=== PATIENT | male | born 1975 | race Caucasian/White ===

== ENCOUNTER → 2017-01-12 | Outpatient (CLI) | payer MEDICAID | LOC: RAD 09:04 | PROVIDERS: ATTEND Nurse Practitioner Adult Health | DX: R06.00 Dyspnea, unspecified (principal); J44.9 Chronic obstructive pulmonary disease, unspecified | CPT/HCPCS: 71250 ==

== ENCOUNTER → 2017-12-28 | Outpatient (CLI) | payer MEDICARE, MEDICAID ==
[2017-12-28 08:28] LABS: ANION GAP 12 (5-19); BLOOD UREA NITROGEN 15 mg/dL (7-20); CALCIUM 9.9 mg/dL (8.4-10.2); CARBON DIOXIDE 28 mmol/L (22-30); CHLORIDE 102 mmol/L (98-107); GLUCOSE 108 mg/dL (75-110); POTASSIUM 4.7 mmol/L (3.6-5.0); SODIUM 141.8 mmol/L (137-145)
--- NOTE | 2017-12-28 09:24 | RADIOLOGY REPORT (SQ) ---
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 Images reviewed with lung, soft tissue and bone windows. Reconstructed coronal and sagittal MPR images reviewed. All images st ored on PACS. All CT scanners at this facility use dose modulation, iterative reconstruction, and/or weight based d osing when appropriate to reduce radiation dose to as low as reasonably achievable (ALARA). [facility]: Dose Right [facility]: CareDose [facility]: Dose Right [facility]: Teradose 4D [facility]: Smart [employer] RADIATION DOSE: CT Rad equipment meets quality standard of care and radiation dose reduction techniq ues were employed. CTDIvol: 9.0 mGy. DLP: 340 mGy-cm. mGy. LIMITATIONS: No technical limitations. FINDINGS: LUNGS AND PLEURA: Centrilobular and paraseptal emphysema. Scattered subcentimeter nodules and reticulonodular pattern in the right lower lobe. Improved aeration in the middle lobe. No prog ression. HILAR AND MEDIASTINAL STRUCTURES: Mediastinal nodes measuring up to about 1 cm in short axis. No pro gression. HEART AND VASCULAR STRUCTURES: No aneurysm. No pericardial effusion. UPPER ABDOMEN: No significant findings. Limited exam. THYROID AND OTHER SOFT TISSUES: No masses. No adenopathy. BONES: No significant finding. HARDWARE: None in the chest. OTHER: No other significant findings. IMPRESSION: Chest findings consistent with clinical history of sarcoid. No progression. TECHNICAL DOCUMENTATION: JOB ID: [id number] Quality ID # [id number]: Final reports with documentation of one or more dose reduction techniques (e.g., Au tomated exposure control, adjustment of the mA and/or kV according to patient size, use of iterative reconstruction technique) 2010 [employer]- All Rights Reserved Reading location - IP/workstation name: [email or web address]
== END ==
LOC: RAD 07:27
PROVIDERS: ATTEND Internal Medicine Pulmonary Disease
DX: D86.0 Sarcoidosis of lung (principal)
CPT/HCPCS: 36415; 71250; 80048; 82164; 82340; 85652

== ENCOUNTER 2018-07-13 18:19 | Emergency (ER) | payer MEDICARE, MEDICAID ==
[2018-07-13 18:51] VITALS: BP 126/81
--- NOTE | 2018-07-13 19:14 | ER Document Report ---
ED Respiratory Problem - General Chief Complaint: Breathing Difficulty Stated Complaint: COUGH,CONGESTION,BODY PAIN Time Seen by Provider: 07/13/18 19:11 Notes: Chief complaint: Need oxygen History of complain:( obtained from----patient)He is here because he needed oxygen, bowel ran out of his house and he is unable to use the oxygen. And also states that he has run out of all his medications and no money to buy. But no exacerbation of COPD. No fever chills or other constitutional symptoms Onset: As above Duration: As above Severity: As above mild Quality: As above as above Context: Exacerbating factor and relieving factors: REVIEW OF SYSTEMS: CONSTITUTIONAL : Denies fever, chills, or sweats. Denies recent illness. EENT: Denies eye, ear, throat, or mouth pain or symptoms. Denies nasal or sinus congestion or discharge. Denies throat, tongue, or mouth swelling or difficulty swallowing. CARDIOVASCULAR: Denies chest pain. Denies palpitations or racing or irregular heart beat. Denies ankle edema. RESPIRATORY: Denies cough, cold, or chest congestion. Denies shortness of breath, difficulty breathing, or wheezing. GASTROINTESTINAL: Denies distention. Denies nausea, vomiting, or diarrhea. Denies blood in vomitus, stools, or per rectum. Denies black, tarry stools. Denies constipation. GENITOURINARY: Denies difficulty urinating, painful urination, burning, frequency, blood in urine, or discharge. FEMALE GENITOURINARY: Denies vaginal bleeding, heavy or abnormal periods, irregular periods. Denies vaginal discharge or odor. MUSCULOSKELETAL: Denies back or neck pain or stiffness. Denies joint pain or swelling. SKIN: Denies rash, lesions or sores. HEMATOLOGIC : Denies easy bruising or bleeding. LYMPHATIC: Denies swollen, enlarged glands. NEUROLOGICAL: Denies confusion or altered mental status. Denies passing out or loss of consciousness. Denies dizziness or lightheadedness. Denies headache. Denies weakness or paralysis or loss of use of either side. Denies problems with gait or speech. Denies sensory loss, numbness, or tingling. Denies seizures. PSYCHIATRIC: Denies anxiety or stress. Denies depression, suicidal ideation, or homicidal ideation. ALL OTHER SYSTEMS REVIEWED AND NEGATIVE. PHYSICAL EXAMINATION: GENERAL: Well-appearing, well-nourished and in no acute distress. Not seems to be in any acute distress HEAD: Atraumatic, normocephalic. EYES: Pupils equal round and reactive to light, extraocular movements intact, conjunctiva are normal. ENT: Nares patent, oropharynx clear without exudates. Moist mucous membranes. NECK: Normal range of motion, supple without lymphadenopathy LUNGS: Breath sounds clear to auscultation bilaterally and equal. No wheezes rales or rhonchi. HEART: Regular rate and rhythm without murmurs ABDOMEN: Soft, nontender, nondistended abdomen. No guarding, no rebound. No masses appreciated. Examination of genitals-deferred Musculoskeletal: Normal range of motion, no pitting or edema. No cyanosis. NEUROLOGICAL: Cranial nerves grossly intact. Normal speech, normal gait. Normal sensory, motor exams PSYCH: Normal mood, normal affect. SKIN: Warm, Dry, normal turgor, no rashes or lesions noted. Dictation was performed using [employer] voice recognition software TRAVEL OUTSIDE OF THE [place] IN LAST 30 DAYS: No - HPI Notes: He is here because he needed oxygen, bowel ran out of his house and he is unable to use the oxygen. And also states that he has run out of all his medications and no money to buy. - Related Data Allergies/Adverse Reactions: morphine [Morphine] Adverse Reaction (Verified 07/13/18 18:21) Past Medical History - Social History Smoking Status: Former Smoker Chew tobacco use (# tins/day): Yes Frequency of alcohol use: None Drug Abuse: None Lives with: Family Family History: Reviewed & Not Pertinent Patient has suicidal ideation: No Patient has homicidal ideation: No Pulmonary Medical History: Reports: Hx Bronchitis, Hx COPD, Hx Pneumonia Renal/ Medical History: Denies: Hx Peritoneal Dialysis Musculoskeletal Medical History: Reports Hx Arthritis Past Surgical History: Reports: Hx Abdominal Surgery - Abdominal resection, Hx Bowel Surgery - Immunizations Hx Diphtheria, Pertussis, Tetanus Vaccination: Yes Review of Systems - Review of Systems Notes: He is here because he needed oxygen, bowel ran out of his house and he is unable to use the oxygen. And also states that he has run out of all his medications and no money to buy. Physical Exam - Vital signs Vitals: Temp Pulse Resp BP Pulse Ox 97.4 F 92 18 126/81 H 97 07/13/18 18:49 07/13/18 18:49 07/13/18 18:49 07/13/18 18:49 07/13/18 18:49 - Notes Notes: He is here because he needed oxygen, bowel ran out of his house and he is unable to use the oxygen. And also states that he has run out of all his medications and no money to buy. Course - Vital Signs Vital signs: Temp Pulse Resp BP Pulse Ox 97.4 F 92 18 126/81 H 97 07/13/18 18:49 07/13/18 18:49 07/13/18 18:49 07/13/18 18:49 07/13/18 18:49 Discharge - Discharge Clinical Impression: Hypoxia COPD (chronic obstructive pulmonary disease) Qualifiers: COPD type: chronic bronchitis Chronic bronchitis type: simple Qualified Code(s) : J41.0 - Simple chronic bronchitis Condition: Fair Instructions: Chronic Obstructive Lung Disease ([facility]) Referrals: LINDY PRO MD [Primary Care Provider] - Follow up as needed
== END 2018-07-13 19:15 | disposition home or self-care (01) ==
LOC: ER 18:19
DX: Z99.12 Encounter for respirator [ventilator] dependence during power failure (principal); J44.9 Chronic obstructive pulmonary disease, unspecified; R09.02 Hypoxemia; Z91.14 Patient's other noncompliance with medication regimen; Z87.891 Personal history of nicotine dependence
CPT/HCPCS: 99283

== ENCOUNTER 2018-12-28 21:23 | Emergency (ER) | payer MEDICARE, MEDICAID ==
[2018-12-28 22:32] LABS: ABSOLUTE BASOPHILS # (AUTO) 0.1 10^3/uL (0.0-0.2); ABSOLUTE EOSINOPHILS # (AUTO) 0.4 10^3/uL (0.0-0.6); ABSOLUTE LYMPHOCYTES (AUTO) 2.9 10^3/uL (0.5-4.7); ABSOLUTE MONOCYTES (AUTO) 0.4 10^3/uL (0.1-1.4); ABSOLUTE NEUT (AUTO) 5.4 10^3/uL (1.7-8.2); BASOPHILS % (AUTO) 1.1 % (0-2); EOSINOPHILS % (AUTO) 4.1 % (0-6); HEMATOCRIT 38.9 % (37.9-51.0); HEMOGLOBIN 13.4 g/dL (13.5-17.0); LYMPHOCYTES % (AUTO) 31.3 % (13-45); MEAN CORPUSCULAR HEMOGLOBIN 31.3 pg (27.0-33.4); MEAN CORPUSCULAR HGB CONC 34.3 g/dL (32.0-36.0); MEAN CORPUSCULAR VOLUME 91 fl (80-97); MONOCYTES % (AUTO) 4.6 % (3-13); PLATELET COUNT 293 10^3/uL (150-450); RED BLOOD COUNT 4.26 10^6/uL (4.35-5.55); RED CELL DISTRIBUTION WIDTH 12.6 % (11.5-14.0); SEGMENTED NEUTROPHILS % (AUTO) 58.9 % (42-78); TOTAL CELLS COUNTED % (AUTO) 100 %; WHITE BLOOD COUNT 9.2 10^3/uL (4.0-10.5)
[2018-12-28 23:04] LABS: ALANINE AMINOTRANSFERASE 34 U/L (21-72); ALKALINE PHOSPHATASE 123 U/L (38-126); ANION GAP 14 (5-19); ASPARTATE AMINO TRANSFERASE 26 U/L (17-59); BILIRUBIN,DIRECT 0.2 mg/dL (0.0-0.4); BILIRUBIN,TOTAL 0.4 mg/dL (0.2-1.3); BLOOD UREA NITROGEN 9 mg/dL (7-20); CARBON DIOXIDE 27 mmol/L (22-30); CHLORIDE 99 mmol/L (98-107); GLUCOSE 123 mg/dL (75-110); POTASSIUM 4.1 mmol/L (3.6-5.0); SODIUM 140.4 mmol/L (137-145); TOTAL PROTEIN 8.1 g/dL (6.3-8.2)
[2018-12-28 23:10] LABS: ACETAMINOPHEN < 10 ug/mL (10-30); ALCOHOL < 10 mg/dL (NONE DETECTED); SALICYLATE < 1.0 mg/dL (2.0-20.0)
--- NOTE | 2018-12-28 23:46 | ER Document Report ---
Addendum entered and electronically signed by CLARENCE KIRK DO 12/29/18 10:45: Discharge - Discharge Clinical Impression: Auditory hallucinations Condition: Stable Disposition: HOME, SELF-CARE Additional Instructions: You have been evaluated both medical and behavioral health teams have been deemed appropriate for discharge. You are highly encouraged to continue with your outpatient mental health services. You are also highly encouraged to engage in healthy sleeping patterns. When going to long without sleep it can cause altered mental status. Altered Mental Status An altered mental status is a change in the normal functioning of the brain. This alteration of function can range from minor decreased brain function with some forgetfulness and confusion to complete loss of consciousness and coma. There are many possible causes of an altered mental status and include brain injuries such as trauma or strokes, problems with oxygen supply to the brain, fever and infections of the brain and/or elsewhere in the body, metabolic abnormalities such as low or high blood sugar, overdoses or excessive medication ingestion, and mental and psychiatric illnesses. Sometimes the altered mental status resolves and a definite cause is not determined. If a cause for your altered mental status was found, it has likely been corrected. Your evaluation has not shown any condition that requires that you be admitted to the hospital. It is believed that you are safe to leave and return to your home. If you have a return of your symptoms, you should return for re-evaluation. Referrals: LINDY PRO MD [ACTIVE STAFF] - Follow up as needed Addendum entered and electronically signed by MARLEY PARKS LCSWA 12/29/18 10:33: Discharge - Discharge Clinical Impression: Auditory hallucinations Condition: Stable Disposition: HOME, SELF-CARE Additional Instructions: You have been evaluated both medical and behavioral health teams have been deemed appropriate for discharge. You are highly encouraged to continue with your outpatient mental health services. You are also highly encouraged to engage in healthy sleeping patterns. When going to long without sleep it can cause altered mental status. Altered Mental Status An altered mental status is a change in the normal functioning of the brain. This alteration of function can range from minor decreased brain function with some forgetfulness and confusion to complete loss of consciousness and coma. There are many possible causes of an altered mental status and include brain injuries such as trauma or strokes, problems with oxygen supply to the brain, f ever and infections of the brain and/or elsewhere in the body, metabolic abnormalities such as low or high blood sugar, overdoses or excessive medication ingestion, and mental and psychiatric illnesses. Sometimes the altered mental status resolves and a definite cause is not determined. If a cause for your altered mental status was found, it has likely been corrected. Your evaluation has not shown any condition that requires that you be admitted to the hospital. It is believed that you are safe to leave and return to your home. If you have a return of your symptoms, you should return for re-evaluation. Referrals: LINDY PRO MD [ACTIVE STAFF] - Follow up as needed Original Note: ED Psych Disorder / Suicide - General Chief Complaint: Psych Problem Stated Complaint: AUDITORY HALLUCINATIONS Time Seen by Provider: 12/28/18 21:46 Primary Care Provider: LINDY PRO MD [ACTIVE STAFF] - Follow up as needed TRAVEL OUTSIDE OF THE [place] IN LAST 30 DAYS: No - HPI Notes: Patient is a 43-year-old male that presents to the emergency department for chief complaint of auditory hallucinations. Patient reportedly lives at home with his father. He states that he is able to hear "everything" in the house. He states he can be in one room and here his father and talk to his father who is in another room. He states this is new for him. He denies visual hallucinations. He denies any known change to his medications. He denies homicidal and suicidal ideation. Past Medical History: COPD Past Surgical History: Reviewed in chart Social History: Daily tobacco. Denies drugs and alcohol Family History: Reviewed and noncontributory for presenting illness Allergies: Reviewed, see documented allergy list. REVIEW OF SYSTEMS: CONSTITUTIONAL : No fever No chills No diaphoresis No recent illness EENT: No vision changes No congestion No sore throat CARDIOVASCULAR: No chest pain No palpitations RESPIRATORY: No shortness of breath No cough No difficulty breathing GASTROINTESTINAL: No abdominal pain No nausea No vomiting No diarrhea GENITOURINARY: No dysuria No hematuria No difficulty urinating MUSCULOSKELETAL: No back pain No leg pain No arm pain SKIN: No rashes No lesions LYMPHATIC: No swollen, enlarged glands. NEUROLOGICAL: No lightheadedness No headache No weakness No paresthesias PSYCHIATRIC: anxiety Auditory hallucinations No depression PHYSICAL EXAMINATION: Vital signs reviewed, nursing noted reviewed. GENERAL: Well-appearing, well-nourished and in no acute distress. HEAD: Atraumatic, normocephalic. EYES: Eyes appear normal, extraocular movements intact, sclera anicteric, conjunctiva are normal. ENT: nares patent, oropharynx clear without exudates. Moist mucous membranes. NECK: Normal range of motion, supple without lymphadenopathy LUNGS: Breath sounds clear to auscultation bilaterally and equal. No wheezes rales or rhonchi. HEART: Regular rate and rhythm without murmurs ABDOMEN: Soft, nontender, normoactive bowel sounds. No rebound, guarding, or rigidity. No masses appreciated. EXTREMITIES: Nontender, good range of motion, no pitting or edema. NEUROLOGICAL: No focal neurological deficits. Moves all extremities spontaneo usly Motor and sensory grossly intact on exam. PSYCH: Anxious, internally stimulated SKIN: Warm, Dry, normal turgor, no rashes or lesions noted on exposed skin - Related Data Allergies/Adverse Reactions: morphine [Morphine] Adverse Reaction (Verified 07/13/18 18:21) Past Medical History - Social History Smoking Status: Current Every Day Smoker Family History: Reviewed & Not Pertinent Pulmonary Medical History: Reports: Hx Bronchitis, Hx COPD, Hx Pneumonia Renal/ Medical History: Denies: Hx Peritoneal Dialysis Musculoskeletal Medical History: Reports Hx Arthritis Past Surgical History: Reports: Hx Abdominal Surgery - Abdominal resection, Hx Bowel Surgery - Immunizations Hx Diphtheria, Pertussis, Tetanus Vaccination: Yes Physical Exam - Vital signs Vitals: Temp Pulse Resp BP Pulse Ox 98.1 F 111 H 20 107/56 L 97 12/28/18 21:33 12/28/18 21:33 12/28/18 21:33 12/28/18 21:33 12/28/18 21:33 Course - Re-evaluation Re-evalutation: 12/29/18 00:04 Vitals reviewed. Nursing notes reviewed. Patient's lab work is unremarkable. He is medically cleared for further psych evaluation for his auditory hallucinations. Patient is not homicidal or suicidal. He is resting comfortably in the room with no immediate complaints. - Vital Signs Vital signs: Temp Pulse Resp BP Pulse Ox 98.1 F 111 H 20 107/56 L 97 12/28/18 21:33 12/28/18 21:33 12/28/18 21:33 12/28/18 21:33 12/28/18 21:33 - Laboratory Result Diagrams: 12/28/18 22:05 03/05/19 22:05 Laboratory results interpreted by me: 12/28/18 12/28/18 22:05 22:05 RBC 4.26 L Hgb 13.4 L Glucose 123 H Salicylates < 1.0 L Acetaminophen < 10 L Discharge - Discharge Clinical Impression: Auditory hallucinations Condition: Stable Referrals: LINDY PRO MD [ACTIVE STAFF] - Follow up as needed
[2018-12-28 23:50] LABS: APPEARANCE,URINE CLEAR; BILIRUBIN,URINE NEGATIVE (NEGATIVE); COLOR,URINE YELLOW; GLUCOSE, URINE NEGATIVE (NEGATIVE); KETONES,URINE NEGATIVE (NEGATIVE); LEUKOCYTE ESTERASE,URINE NEGATIVE (NEGATIVE); NITRITE,URINE NEGATIVE (NEGATIVE); PROTEIN,URINE NEGATIVE (NEGATIVE); URINE SPECIFIC GRAVITY 1.015; UROBILINOGEN,URINE NEGATIVE mg/dL (<2.0)
[2018-12-29 00:05] LABS: URINE AMPHETAMINES SCREEN NEGATIVE; URINE BARBITURATES SCREEN NEGATIVE; URINE BENZODIAZEPINES SCREEN NEGATIVE; URINE COCAINE SCREEN NEGATIVE; URINE MARIJUANA (THC) SCREEN NEGATIVE; URINE METHADONE SCREEN UNCONFIRMED POSITIVE; URINE PHENCYCLIDINE SCREEN NEGATIVE
[2018-12-29] MEDS ORDERED: ZIPRASIDONE HCL 20 MG CAPSULE PO ONE ×2 (00:55→01:26)
[2018-12-29] MEDS ORDERED: NICOTINE 14 MG/24 HR PATCH.TD24 TD ONE (01:09)
--- NOTE | 2018-12-29 10:29 | ER Document Report ---
Doctor's Note Notes: 12/29/18 10:27 Patient seen and examined. He states he is feeling much better today. He believes his entire problem was because he had not slept in nearly 10 days. He had been on medication to help him sleep, he had stopped taking that. He denies any hallucinations this morning. Denies any suicidal or homicidal ideation. States he does have follow-up, feels safe with discharge. Patient is awake and alert, pleasant and cooperative. Heart is regular rate and rhythm, lungs occasional rhonchi. Abdomen soft and nontender. Skin is warm and dry. Plan is discharge. He is to follow-up with [facility]. He is reminded of the importance of sleep and normal mental function and voiced understanding to this. He is to return as needed.
[2018-12-29 10:50] VITALS: BP 136/78
--- NOTE | 2018-12-29 16:23 | PSYCHOLOGICAL NOTE ---
Psych Note - Psych Note Date seen by psych provider: 12/29/18 Time seen by psych provider: 10:15 Psych Note: Reason for Consult: AMS; Hallucinations Patient reports he came to [facility] ED because he was seeing and hearing things that were not there. He reports that he not slept in 10 days and feels this was a significant cause. He continued to report that he takes methadone and feels that this may be the reason he was unable to sleep. He continued to report that he is no longer having any difficulties with seeing or hearing things that confuse or scare him. He is requesting to be discharged so he can get his methadone. At this time the patient is completely orientated is not demonstrating any behaviors to indicate he is responding to internal stimuli. She denies having any history of mental health diagnoses and denies engaging in self-harm behaviors. Patient is alert and orientated to person, place, time and circumstance. Mood is euthymic with congruent affect. Patient denies suicidal and homicidal ideation. Delusions are absent behaviors congruent with an intact reality based presentation i.e. organized and linear thought process. Eye contact was well- maintained. Conversational speech is within normal rate, tone and prosody. Intellectual abilities appear to be within the average range. Attention and concentration are fair. Insight, judgment, impulse control are fair. No medication recommendations at this time Deferred Impression\plan: Patient is cleared from acute psychiatric services. Patient reports that he had not slept in 10 days and feels that this may have caused some of his difficulties. He reports that now he is gone from sleep he is feeling much better. Patient is able to conduct an organized linear conversation is not demonstrating any behaviors of responding to internal stimuli evidenced by eye contact being well maintained, normal conversational speech, organized and linear thought process. Patient reports he is on methadone and when he found out he would not be able to receive any methadone this morning he asked to be discharged so he can get some. He reports that he receives therapy when he goes to the [facility] for his methadone. Clinician recommended substance abuse treatment assessment to determine best treatment options. Patient reports he will return to the [facility] and did not declines any other assistance. At this time the patient is orientated to person place time and circumstance and is not demonstrated any behaviors of responding to internal stimuli. He is asking to be discharged; he does not meet IVC criteria per [place] GS 122C. Dr. Hannah was consulted and the care management of this patient; attending physicians in agreement with recommendations and disposition.
--- NOTE | 2018-12-29 19:17 | EKG REPORT ---
SEVERITY:- BORDERLINE ECG - SINUS RHYTHM BORDERLINE T ABNORMALITIES, ANTERIOR LEADS BORDERLINE PROLONGED QT INTERVAL : Confirmed by: Patricia Angeles MD 29-Dec-2018 19:16:14
== END 2018-12-29 11:08 | disposition home or self-care (01) ==
LOC: ER 21:23
DX: R44.0 Auditory hallucinations (principal); R41.82 Altered mental status, unspecified; F17.210 Nicotine dependence, cigarettes, uncomplicated; J44.9 Chronic obstructive pulmonary disease, unspecified; Z88.6 Allergy status to analgesic agent
CPT/HCPCS: 93005; 99285; 36415; 80307 ×4; 85025; 80053; 81001; 93010; A9270

== ENCOUNTER 2019-01-01 13:28 | Emergency (ER) | payer MEDICARE, MEDICAID ==
--- NOTE | 2019-01-01 14:04 | ER Document Report ---
ED Medical Screen (RME) - General Chief Complaint: Psych Problem Stated Complaint: PSYCH CONSULT Time Seen by Provider: 01/01/19 14:02 Primary Care Provider: DEDRA WINTERS MD [Primary Care Provider] - Follow up as needed Mode of Arrival: Ambulatory Information source: Patient, [facility] Records Notes: 43-year-old male presents in security custody after being found walking around the hospital naked. Patient is alert and oriented x3 but confused and states that he is being poisoned. I have greeted and performed a rapid initial assessment of this patient. A comprehensive ED assessment and evaluation of the patient, analysis of test results and completion of medical decision making process we will be contacted by additional ED providers. PHYSICAL EXAMINATION: Vital signs reviewed GENERAL: Well-appearing, well-nourished and in no acute distress. LUNGS: No respiratory distress Musculoskeletal: Normal range of motion NEUROLOGICAL: Normal speech, normal gait. PSYCH: Confused, paranoid SKIN: Warm, Dry, normal turgor, no rashes or lesions noted. TRAVEL OUTSIDE OF THE [place] IN LAST 30 DAYS: No - HPI Onset: Just prior to arrival Onset/Duration: Sudden Quality of pain: No pain Associated Symptoms: None Exacerbated by: Denies Relieved by: Denies Similar symptoms previously: No Recently seen / treated by doctor: No - Related Data Smoking: Cigarettes Frequency of alcohol use: None Drug Abuse: None Allergies/Adverse Reactions: morphine [Morphine] Adverse Reaction (Verified 12/29/18 00:19) Past Medical History Pulmonary Medical History: Reports: Hx Bronchitis, Hx COPD, Hx Pneumonia Renal/ Medical History: Denies: Hx Peritoneal Dialysis Musculoskeltal Medical History: Reports Hx Arthritis Past Surgical History: Reports: Hx Abdominal Surgery - Abdominal resection, Hx Bowel Surgery - Immunizations Hx Diphtheria, Pertussis, Tetanus Vaccination: Yes Physical Exam - Vital signs Vitals: Temp Pulse Resp BP Pulse Ox 98.3 F 128 H 16 121/91 H 96 01/01/19 13:47 01/01/19 13:47 01/01/19 13:47 01/01/19 13:47 01/01/19 13:47 Course - Vital Signs Vital signs: Temp Pulse Resp BP Pulse Ox 98.3 F 128 H 16 121/91 H 96 01/01/19 13:47 01/01/19 13:47 01/01/19 13:47 01/01/19 13:47 01/01/19 13:47 Doctor's Discharge - Discharge Referrals: DEDRA WINTERS MD [Primary Care Provider] - Follow up as needed
[2019-01-01 15:15] LABS: ABSOLUTE BASOPHILS # (AUTO) 0.1 10^3/uL (0.0-0.2); ABSOLUTE EOSINOPHILS # (AUTO) 0.1 10^3/uL (0.0-0.6); ABSOLUTE LYMPHOCYTES (AUTO) 2.8 10^3/uL (0.5-4.7); ABSOLUTE MONOCYTES (AUTO) 0.7 10^3/uL (0.1-1.4); ABSOLUTE NEUT (AUTO) 7.6 10^3/uL (1.7-8.2); BASOPHILS % (AUTO) 0.9 % (0-2); EOSINOPHILS % (AUTO) 0.8 % (0-6); HEMATOCRIT 39.7 % (37.9-51.0); HEMOGLOBIN 13.2 g/dL (13.5-17.0); LYMPHOCYTES % (AUTO) 24.4 % (13-45); MEAN CORPUSCULAR HEMOGLOBIN 30.2 pg (27.0-33.4); MEAN CORPUSCULAR HGB CONC 33.2 g/dL (32.0-36.0); MEAN CORPUSCULAR VOLUME 91 fl (80-97); MONOCYTES % (AUTO) 6.5 % (3-13); PLATELET COUNT 331 10^3/uL (150-450); RED BLOOD COUNT 4.37 10^6/uL (4.35-5.55); RED CELL DISTRIBUTION WIDTH 12.5 % (11.5-14.0); SEGMENTED NEUTROPHILS % (AUTO) 67.4 % (42-78); TOTAL CELLS COUNTED % (AUTO) 100 %; WHITE BLOOD COUNT 11.3 10^3/uL (4.0-10.5)
[2019-01-01 15:19] LABS: ALANINE AMINOTRANSFERASE 28 U/L (21-72); ALBUMIN 5.2 g/dL (3.5-5.0); ALKALINE PHOSPHATASE 130 U/L (38-126); ANION GAP 14 (5-19); ASPARTATE AMINO TRANSFERASE 45 U/L (17-59); BILIRUBIN,DIRECT 0.2 mg/dL (0.0-0.4); BILIRUBIN,TOTAL 0.5 mg/dL (0.2-1.3); BLOOD UREA NITROGEN 12 mg/dL (7-20); CALCIUM 10.9 mg/dL (8.4-10.2); CARBON DIOXIDE 29 mmol/L (22-30); CHLORIDE 97 mmol/L (98-107); GLUCOSE 102 mg/dL (75-110); SODIUM 140.1 mmol/L (137-145); TOTAL PROTEIN 8.5 g/dL (6.3-8.2)
[2019-01-01 15:25] LABS: ACETAMINOPHEN < 10 ug/mL (10-30); ALCOHOL < 10 mg/dL (NONE DETECTED); SALICYLATE < 1.0 mg/dL (2.0-20.0)
[2019-01-01] MEDS ORDERED: NORMAL SALINE 1000 ML 1,000 ML IV PRN (15:39)
--- NOTE | 2019-01-01 15:40 | ER Document Report ---
ED General - General Chief Complaint: Psych Problem Stated Complaint: PSYCH CONSULT Time Seen by Provider: 01/01/19 14:02 Primary Care Provider: DEDRA WINTERS MD [Primary Care Provider] - Follow up as needed Mode of Arrival: Ambulatory Notes: 43-year-old male to the emergency department chief complaint altered mental status. Apparently was walking around outside with minimal close on. Patient was brought in here for evaluation. He is not sleeping well again. Was seen here a few days ago for the same. Was apparently evaluated by mental health. Patient states that he thinks he is dehydrated. Very sleepy. States that he supposed to be on oxygen but has not been able to get a refill on his oxygen. Apparently patient is on methadone as well. Patient denies doing any toxic subs tances. Denies alcohol abuse. Denies suicidal ideation or homicidal ideation or other issues at this time. States that he ran out of his oxygen and he thinks may be that is why he was altered. TRAVEL OUTSIDE OF THE [place] IN LAST 30 DAYS: No - HPI Onset: Just prior to arrival Quality of pain: No pain - Related Data Allergies/Adverse Reactions: morphine [Morphine] Adverse Reaction (Verified 12/29/18 00:19) Past Medical History - General Information source: Patient, [facility] Records - Social History Smoking Status: Current Every Day Smoker Chew tobacco use (# tins/day): No Frequency of alcohol use: None Drug Abuse: None Family History: Reviewed & Not Pertinent Patient has suicidal ideation: No Patient has homicidal ideation: No Pulmonary Medical History: Reports: Hx Bronchitis, Hx COPD, Hx Pneumonia Renal/ Medical History: Denies: Hx Peritoneal Dialysis Musculoskeletal Medical History: Reports Hx Arthritis Past Surgical History: Reports: Hx Abdominal Surgery - Abdominal resection, Hx Bowel Surgery - Immunizations Hx Diphtheria, Pertussis, Tetanus Vaccination: Yes Review of Systems - Review of Systems Notes: Constitutional: denies: Chills, Diaphoresis, Fever, Malaise, Weakness EENT: denies: Eye discharge, Blurred vision, Tearing, Double vision, Nose congestion, Nose discharge, Throat swelling, Mouth pain Cardiovascular: denies: Palpitations, Heart racing, Orthopnea, Dyspnea, Chest p ain Respiratory: denies: Cough, Hurts to breathe, Wheezing,. Does complain of chronic shortness of breath Gastrointestinal: denies: Abdominal pain, Diarrhea, Nausea, Vomiting, Black stools, bright red blood in stool Genitourinary: denies: Burning, Dysuria, Discharge, Frequency, Flank pain, Hemat uria Musculoskeletal: denies: Joint pain, Joint swelling, Muscle pain, Muscle stiffness, back pain Hematologic/Lymphatic: denies: Anemia, Easy bleeding, Easy bruising, Blood clots Neurological/Psychological: denies: Dementia, Depression, Loss of consciousness. Does complain of confusion Skin: No lesions, no masses, no skin breakdown, no abscesses Physical Exam - Vital signs Vitals: Temp Pulse Resp BP Pulse Ox 98.3 F 128 H 16 121/91 H 96 01/01/19 13:47 01/01/19 13:47 01/01/19 13:47 01/01/19 13:47 01/01/19 13:47 Interpretation: Normal - General General appearance: Appears well, Alert - HEENT Head: Normocephalic, Atraumatic Eyes: Normal Pupils: PERRL - Respiratory Respiratory status: No respiratory distress Chest status: Nontender Breath sounds: Normal Chest palpation: Normal - Cardiovascular Rhythm: Regular Heart sounds: Normal auscultation Murmur: No - Abdominal Inspection: Normal Distension: No distension Bowel sounds: Normal Tenderness: Nontender Organomegaly: No organomegaly - Back Back: Normal, Nontender - Extremities General upper extremity: Normal inspection, Nontender, Normal color, Normal ROM, Normal temperature General lower extremity: Normal inspection, Nontender, Normal color, Normal ROM, Normal temperature, Normal weight bearing. No: Orin's sign - Neurological Neuro grossly intact: Yes Cognition: Normal Orientation: AAOx4 [place] Coma Scale Eye Opening: Spontaneous Lance Coma Scale Verbal: Oriented Lance Coma Scale Motor: Obeys Commands Lance Coma Scale Total: 15 Speech: Normal Motor strength normal: LUE, RUE, LLE, RLE Sensory: Normal Notes: does seem a little sleepy but otherwise unremarkable. - Psychological Associated symptoms: Normal affect, Normal mood - Skin Skin Temperature: Warm Skin Moisture: Dry Skin Color: Normal Course - Re-evaluation Re-evalutation: 01/01/19 20:32 Patient is awake and alert in no acute distress. Unknown etiology of his alleged altered mental status. I had never saw any altered mental status. Possible patient is under the influence of something which is not testable such as Robitussin or dextromethorphan. Does have positive urine screen for methadone but reportedly on methadone. Patient got an ABG performed which is fairly unremarkable. His oxygen saturations have been within normal limits here. Is resting comfortably and in no acute distress. I find no reason to keep patient on an involuntary commitment paperwork as he seems appropriate at this time. I do not know what his current living situation is however I can effectively say I think that we have ruled out major emergencies and he has no major mental health concerns in my opinion at this time. 01/01/19 20:33 Laboratory 01/01/19 01/01/19 01/01/19 14:25 14:25 15:50 WBC 11.3 H RBC 4.37 Hgb 13.2 L Hct 39.7 MCV 91 MCH 30.2 MCHC 33.2 RDW 12.5 Plt Count 331 Seg Neutrophils % 67.4 Lymphocytes % 24.4 Monocytes % 6.5 Eosinophils % 0.8 Basophils % 0.9 Absolute Neutrophils 7.6 Absolute Lymphocytes 2.8 Absolute Monocytes 0.7 Absolute Eosinophils 0.1 Absolute Basophils 0.1 Carbonic Acid HCO3/H2CO3 Ratio ABG pH ABG pCO2 ABG pO2 ABG HCO3 ABG Total CO2 ABG O2 Saturation ABG Base Excess FiO2 Sodium 140.1 Potassium 4.0 Chloride 97 L Carbon Dioxide 29 Anion Gap 14 BUN 12 Creatinine 0.79 Est GFR ( Amer) > 60 Est GFR (Non-Af Amer) > 60 Glucose 102 Calcium 10.9 H Total Bilirubin 0.5 Direct Bilirubin 0.2 Neonat Total Bilirubin Not Reportable Neonat Direct Bilirubin Not Reportable Neonat Indirect Bili Not Reportable AST 45 ALT 28 Alkaline Phosphatase 130 H Total Protein 8.5 H Albumin 5.2 H Urine Color VINI Urine Appearance SLIGHTLY-CLOUDY Urine pH 6.0 Ur Specific Eden 1.023 Urine Protein 100 H Urine Glucose (UA) NEGATIVE Urine Ketones NEGATIVE Urine Blood NEGATIVE Urine Nitrite NEGATIVE Urine Bilirubin NEGATIVE Urine Urobilinogen 2.0 H Ur Leukocyte Esterase TRACE H Urine WBC (Auto) 4 Urine RBC (Auto) 4 U Hyaline Cast (Auto) 1 Urine Bacteria (Auto) 3+ Calcium Oxalate Cr Auto RARE Urine Mucus (Auto) OCC Urine Ascorbic Acid NEGATIVE Salicylates < 1.0 L Urine Opiates Screen Urine Methadone Screen Acetaminophen < 10 L Ur Barbiturates Screen Ur Phencyclidine Scrn Ur Amphetamines Screen U Benzodiazepines Scrn Urine Cocaine Screen U Marijuana (THC) Screen Serum Alcohol < 10 01/01/19 01/01/19 15:50 16:40 WBC RBC Hgb Hct MCV MCH MCHC RDW Plt Count Seg Neutrophils % Lymphocytes % Monocytes % Eosinophils % Basophils % Absolute Neutrophils Absolute Lymphocytes Absolute Monocytes Absolute Eosinophils Absolute Basophils Carbonic Acid 1.35 HCO3/H2CO3 Ratio 20:1 ABG pH 7.41 ABG pCO2 44.7 ABG pO2 72.9 L ABG HCO3 27.9 H ABG Total CO2 29.3 H ABG O2 Saturation 94.8 ABG Base Excess 2.8 FiO2 ROOM AIR Sodium Potassium Chloride Carbon Dioxide Anion Gap BUN Creatinine Est GFR ( Amer) Est GFR (Non-Af Amer) Glucose Calcium Total Bilirubin Direct Bilirubin Neonat Total Bilirubin Neonat Direct Bilirubin Neonat Indirect Bili AST ALT Alkaline Phosphatase Total Protein Albumin Urine Color Urine Appearance Urine pH Ur Specific Eden Urine Protein Urine Glucose (UA) Urine Ketones Urine Blood Urine Nitrite Urine Bilirubin Urine Urobilinogen Ur Leukocyte Esterase Urine WBC (Auto) Urine RBC (Auto) U Hyaline Cast (Auto) Urine Bacteria (Auto) Calcium Oxalate Cr Auto Urine Mucus (Auto) Urine Ascorbic Acid Salicylates Urine Opiates Screen NEGATIVE Urine Methadone Screen UNCONFIRMED POSITIVE Acetaminophen Ur Barbiturates Screen NEGATIVE Ur Phencyclidine Scrn NEGATIVE Ur Amphetamines Screen NEGATIVE U Benzodiazepines Scrn NEGATIVE Urine Cocaine Screen NEGATIVE U Marijuana (THC) Screen NEGATIVE Serum Alcohol - Vital Signs Vital signs: Temp Pulse Resp BP Pulse Ox 98.6 F 105 H 20 114/80 96 01/01/19 19:16 01/01/19 19:54 01/01/19 19:16 01/01/19 19:16 01/01/19 19:54 - Laboratory Result Diagrams: 01/01/19 14:25 01/01/19 14:25 Laboratory results interpreted by me: 01/01/19 01/01/19 01/01/19 14:25 14:25 15:50 WBC 11.3 H Hgb 13.2 L ABG pO2 ABG HCO3 ABG Total CO2 Chloride 97 L Calcium 10.9 H Alkaline Phosphatase 130 H Total Protein 8.5 H Albumin 5.2 H Urine Protein 100 H Urine Urobilinogen 2.0 H Ur Leukocyte Esterase TRACE H Salicylates < 1.0 L Acetaminophen < 10 L 01/01/19 16:40 WBC Hgb ABG pO2 72.9 L ABG HCO3 27.9 H ABG Total CO2 29.3 H Chloride Calcium Alkaline Phosphatase Total Protein Albumin Urine Protein Urine Urobilinogen Ur Leukocyte Esterase Salicylates Acetaminophen - EKG Interpretation by De EKG shows normal: [place], Intervals, QRS Complexes, ST-T Waves Rate: Tachycardia Discharge - Discharge Clinical Impression: Altered mental status, unspecified Qualifiers: Altered mental status type: somnolence Qualified Code(s): R40.0 - Somnolence Condition: Good Disposition: HOME, SELF-CARE Instructions: Chronic Obstructive Lung Disease ([facility]), Altered Mental Status ([facility]) Prescriptions: Albuterol Sulfate [Proair HFA Inhalation Aerosol 8.5 gm MDI] 2 puff IH Q4H PRN #1 mdi PRN Reason: Fluticasone/Salmeterol [Advair 250-50 Diskus 14 Dose/Diskus] 1 inh IH Q12H #1 inhaler Referrals: DEDRA WINTERS MD [Primary Care Provider] - Follow up as needed
[2019-01-01 16:18] LABS: APPEARANCE,URINE SLIGHTLY-CLOUDY; BILIRUBIN,URINE NEGATIVE (NEGATIVE); CALCIUM OXALATE CRYSTALS,URINE RARE /HPF; COLOR,URINE AMBER; GLUCOSE, URINE NEGATIVE (NEGATIVE); KETONES,URINE NEGATIVE (NEGATIVE); LEUKOCYTE ESTERASE,URINE TRACE (NEGATIVE); NITRITE,URINE NEGATIVE (NEGATIVE); PROTEIN,URINE 100 mg/dL (NEGATIVE); URINE SPECIFIC GRAVITY 1.023
[2019-01-01 16:35] LABS: URINE AMPHETAMINES SCREEN NEGATIVE; URINE BARBITURATES SCREEN NEGATIVE; URINE BENZODIAZEPINES SCREEN NEGATIVE; URINE COCAINE SCREEN NEGATIVE; URINE MARIJUANA (THC) SCREEN NEGATIVE; URINE METHADONE SCREEN UNCONFIRMED POSITIVE; URINE PHENCYCLIDINE SCREEN NEGATIVE
[2019-01-01 19:05] LABS: ARTERIAL BLOOD BASE EXCESS 2.8 mmol/L; ARTERIAL BLOOD H2CO3 1.35 mmol/L (1.05-1.35); ARTERIAL BLOOD HCO3 27.9 mmol/L (20-24); ARTERIAL BLOOD O2 SATURATION 94.8 % (94-98); ARTERIAL BLOOD PCO2 44.7 mmHg (35-45); ARTERIAL BLOOD PH 7.41 (7.35-7.45); ARTERIAL BLOOD PO2 72.9 mmHg (80-100); ARTERIAL BLOOD TOTAL CO2 29.3 mmol/L (23-27)
[2019-01-01 19:06] LABS: ARTERIAL BLOOD FIO2 ROOM AIR
[2019-01-01] MEDS ORDERED: ALBUTEROL SULFATE 0.083% NEB 2.5 MG/3 ML AMPUL NEB ONE (19:19)
[2019-01-01 21:32] VITALS: BP 109/69
--- NOTE | 2019-01-01 22:18 | EKG REPORT ---
SEVERITY:- OTHERWISE NORMAL ECG - SINUS TACHYCARDIA : Confirmed by: Patricia Angeles MD 01-Jan-2019 22:17:31
--- NOTE | 2019-01-02 11:12 | PSYCHOLOGICAL NOTE ---
Psych Note - Psych Note Date seen by psych provider: 01/01/19 Time seen by psych provider: 14:00 Psych Note: Met with Patient after he was found wandering the hallways near ICU naked. Patient was noted to be eccentric but able to engage in conversation. Patient continually reported he was supposed to be on 3L of oxygen 18/05 and ran out of his own oxygen. Patient did not have an answer to being naked in the hospital. Patient was previously seen by behavioral health on 12.29.2018 and reported he went to the methadone clinic daily. When asked about it today, Patient reported he did not go to the [facility] today and last went yesterday. He was unable to recall his daily methadone dosage, and in fact, avoided the question repeatedly. Patient denied the use of any illegal drugs and denied suicidal/homicidal ideation, intent or plan. Patient would not share what he needed or wanted from the hospital staff. Patient was alert and oriented to person, place, and circumstance but not to time. Mood was euphoric and affect was mood congruent. He denied suicidal /homicidal ideation, intent or plan. HE denied auditory / visual hallucinations though initial report from physician was that he was observed to be talking to himself and to others who were not present. Patient did not present this way during this evaluation and delusions were not evident. Thought processes were mildly disorganized initially but became more linear and organized during the assessment. Conversational speech was within normal limits for rate, tone, and prosody. Gross motor movements were loose and flexible, not well controlled. Patient presented as though he was under the influence of an illicit drug though he denied this. Intellectual abilities were estimated within the average range. Attention and concentration was poor. Insight, judgment, and impulse control were poor. Patient was guarded at times throughout the assessment as he would avoid answering questions by indicating he needed to use the bathroom or changing the subject. He refused to provide a urine sample multiple times but eventually provided a sample which demonstrated a positive response for methadone only. Diagnoses are deferred at this time secondary to not information. His lab work is remarkable for medical abnormalities and the ED Physician is continuing to assess at this time. Impression/ Plan: Patient is cleared from acute psychiatric services at this time. Review of his initial lab work and toxicology screen suggests his presenting issues are more likely medical in nature, possibly as it relates to his medical history of COPD /hypoxia and need for ongoing oxygen treatment. As such, psychiatric intervention is felt to not be warranted at this time. Patient was provided outpatient resources in the event he felt he required mental health / substance abuse care on an outpatient basis. ED Physician in agreement with recommendation and disposition.
== END 2019-01-01 21:43 | disposition home or self-care (01) ==
LOC: ER 13:28
DX: R40.0 Somnolence (principal); Z79.891 Long term (current) use of opiate analgesic; J44.9 Chronic obstructive pulmonary disease, unspecified; T41.5X6A Underdosing of therapeutic gases, initial encounter; Z91.128 Patient's intentional underdosing of medication regimen for other reason; Z91.14 Patient's other noncompliance with medication regimen; R00.0 Tachycardia, unspecified
CPT/HCPCS: 93005; 94640; 99285; 96360; 96361; 36415; 87086; 80307 ×4; 82803; 85025; 80053; 81001; 93010; J7030; A9270

== ENCOUNTER 2019-02-24 21:34 | Emergency (ER) | payer MEDICARE, MEDICAID ==
[2019-02-24 23:11] LABS: ABSOLUTE BASOPHILS # (AUTO) 0.1 10^3/uL (0.0-0.2); ABSOLUTE EOSINOPHILS # (AUTO) 0.1 10^3/uL (0.0-0.6); ABSOLUTE LYMPHOCYTES (AUTO) 2.1 10^3/uL (0.5-4.7); ABSOLUTE MONOCYTES (AUTO) 0.5 10^3/uL (0.1-1.4); ABSOLUTE NEUT (AUTO) 7.4 10^3/uL (1.7-8.2); BASOPHILS % (AUTO) 0.9 % (0-2); EOSINOPHILS % (AUTO) 0.9 % (0-6); HEMOGLOBIN 13.5 g/dL (13.5-17.0); MEAN CORPUSCULAR HEMOGLOBIN 28.5 pg (27.0-33.4); MEAN CORPUSCULAR VOLUME 86 fl (80-97); MONOCYTES % (AUTO) 4.5 % (3-13); PLATELET COUNT 240 10^3/uL (150-450); RED BLOOD COUNT 4.75 10^6/uL (4.35-5.55); RED CELL DISTRIBUTION WIDTH 12.9 % (11.5-14.0); SEGMENTED NEUTROPHILS % (AUTO) 72.7 % (42-78); TOTAL CELLS COUNTED % (AUTO) 100 %; WHITE BLOOD COUNT 10.2 10^3/uL (4.0-10.5)
[2019-02-24 23:28] LABS: ALANINE AMINOTRANSFERASE 22 U/L (21-72); ALBUMIN 4.7 g/dL (3.5-5.0); ALKALINE PHOSPHATASE 120 U/L (38-126); ANION GAP 12 (5-19); ASPARTATE AMINO TRANSFERASE 24 U/L (17-59); BILIRUBIN,DIRECT 0.3 mg/dL (0.0-0.4); BILIRUBIN,TOTAL 0.7 mg/dL (0.2-1.3); BLOOD UREA NITROGEN 29 mg/dL (7-20); CALCIUM 10.3 mg/dL (8.4-10.2); CARBON DIOXIDE 28 mmol/L (22-30); CHLORIDE 102 mmol/L (98-107); GLUCOSE 115 mg/dL (75-110); POTASSIUM 4.1 mmol/L (3.6-5.0); SODIUM 142.2 mmol/L (137-145); TOTAL PROTEIN 7.9 g/dL (6.3-8.2)
[2019-02-24 23:31] LABS: ACETAMINOPHEN < 10 ug/mL (10-30); ALCOHOL < 10 mg/dL (NONE DETECTED); SALICYLATE < 1.0 mg/dL (2.0-20.0)
--- NOTE | 2019-02-24 23:48 | RADIOLOGY REPORT (SQ) ---
EXAM DESCRIPTION: XR LUMBAR SPINE ANTEROPOSTERIOR, LATERAL, AND OBLIQUES COMPLETED DATE/TME: 02/24/2019 22:59 CLINICAL HISTORY: 44 years, Male, pain COMPARISON: None. NUMBER OF VIEWS: 5 TECHNIQUE: 5 view lumbar spine LIMITATIONS: None. FINDINGS: 5 lumbar type vertebral bodies. Height and alignment is preserved. Questionable unilateral pars defect on the right at the L5-S1 level. There is extensive overlying bowel gas. Minor disc space narrowing and facet arthropathy at the L4-5 and L5-S1 levels. Iliac joints are preserved IMPRESSION: Minor degenerative change, as above. No acute osseous abnormality copyright 2010 [employer]- All Rights Reserved
[2019-02-24 23:53] LABS: AMORPHOUS SEDIMENT,URINE TRACE /HPF; APPEARANCE,URINE TURBID; BILIRUBIN,URINE SMALL (NEGATIVE); COLOR,URINE AMBER; GLUCOSE, URINE NEGATIVE (NEGATIVE); KETONES,URINE 20 mg/dL (NEGATIVE); LEUKOCYTE ESTERASE,URINE NEGATIVE (NEGATIVE); NITRITE,URINE NEGATIVE (NEGATIVE); PROTEIN,URINE 100 mg/dL (NEGATIVE); URINE SPECIFIC GRAVITY 1.031
[2019-02-24 23:57] LABS: URINE AMPHETAMINES SCREEN NEGATIVE; URINE BARBITURATES SCREEN NEGATIVE; URINE BENZODIAZEPINES SCREEN NEGATIVE; URINE COCAINE SCREEN NEGATIVE; URINE MARIJUANA (THC) SCREEN NEGATIVE; URINE METHADONE SCREEN UNCONFIRMED POSITIVE; URINE PHENCYCLIDINE SCREEN NEGATIVE
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
[2019-02-25] MEDS ORDERED: ACETAMINOPHEN 325 MG TABLET PO ONE (09:26)
[2019-02-25] MEDS ORDERED: METHADONE HCL 10 MG TABLET PO ONE (11:29)
--- NOTE | 2019-02-25 12:45 | ER Document Report ---
Doctor's Note Notes: 02/25/19 12:43 Rounds: Chart reviewed and patient interviewed. Patient is here because it was felt that he may be suicidal. Patient denies feeling suicidal, but complains of chronic pain. He has been on methadone for many years. Did not go to the clinic and get his methadone yesterday. Patient says he thinks he is going into withdrawal which might be making him feel somewhat suicidal. Vital signs are all essentially normal. Lab studies are all normal. Patient was given 130 mg of p.o. methadone today in this ED. Patient appears to be medically stable for transfer or discharge. Fazal Awan MD
[2019-02-25] MEDS ORDERED: DIVALPROEX SODIUM 500 MG TAB.SR.24H PO ONE (13:39)
--- NOTE | 2019-02-25 15:08 | RADIOLOGY REPORT (SQ) ---
EXAM DESCRIPTION: CT HEAD WITHOUT COMPLETED DATE/TIME: 02/25/2019 3:00 pm REASON FOR STUDY: Altered mental status and behavioral changes COMPARISON: None. TECHNIQUE: Axial images acquired through the brain without intravenous contrast. Images reviewed wi th bone, brain and subdural windows. Additional sagittal and coronal reconstructions were generated. Images stored on PACS. All CT scanners at this facility use dose modulation, iterative reconstruction, and/or weight based d osing when appropriate to reduce radiation dose to as low as reasonably achievable (ALARA). [facility]: Dose Right [facility]: CareDose [facility]: Dose Right [facility]: Teradose 4D [facility]: [employer] RADIATION DOSE: CT Rad equipment meets quality standard of care and radiation dose reduction techniq ues were employed. CTDIvol: 53.2 mGy. DLP: 1044 mGy-cm. mGy. LIMITATIONS: None. FINDINGS: VENTRICLES: Normal size and contour. CEREBRUM: No masses. No hemorrhage. No midline shift. No evidence for acute infarction. Normal gra y/white matter differentiation. No areas of low density in the white matter. CEREBELLUM: No masses. No hemorrhage. No alteration of density. No evidence for acute infarction. EXTRAAXIAL SPACES: No fluid collections. No masses. ORBITS AND GLOBE: No intra- or extraconal masses. Normal contour of globe without masses. CALVARIUM: No fracture. PARANASAL SINUSES: There is small retention cyst or polyps in both maxillary sinuses. SOFT TISSUES: No mass or hematoma. OTHER: No other significant finding. IMPRESSION: NORMAL BRAIN CT WITHOUT CONTRAST. EVIDENCE OF ACUTE STROKE: NO. COMMENT: Quality ID # [id number]: Final reports with documentation of one or more dose reduction techniques (e.g., Automated exposure control, adjustment of the mA and/or kV according to patient size, use of iterative reconstruction technique) TECHNICAL DOCUMENTATION: JOB ID: [id number] [employer]- All Rights Reserved Reading location - IP/workstation name: [email or web address]
[2019-02-25 16:34] VITALS: BP 121/65
--- NOTE | 2019-02-25 18:50 | EKG REPORT ---
SEVERITY:- NORMAL ECG - SINUS RHYTHM : Confirmed by: Chalo Manzano 25-Feb-2019 18:50:01
== END 2019-02-25 16:34 | disposition home or self-care (01) ==
LOC: ER 21:34
DX: R45.851 Suicidal ideations (principal); R45.89 Other symptoms and signs involving emotional state; M54.5 Low back pain; F17.200 Nicotine dependence, unspecified, uncomplicated
CPT/HCPCS: 93005; 99284; 96374; 96375; 36415; 80307 ×4; 85025; 80053; 81001; 72110; 70450; 93010; A9270 ×3

== ENCOUNTER → 2019-09-03 | Outpatient (CLI) | payer MEDICARE, MEDICAID ==
--- NOTE | 2019-09-03 11:10 | RADIOLOGY REPORT (SQ) ---
EXAM DESCRIPTION: CT CHEST WITHOUT COMPLETED DATE/TIME: 09/03/2019 10:32 am REASON FOR STUDY: (D86.0)SARCOIDOSIS OF LUNG D86.0 SARCOIDOSIS OF LUNG COMPARISON: 12/28/2017 TECHNIQUE: CT scan performed of the chest without intravenous contrast. Images reviewed with lung, soft tissue and bone windows. Reconstructed coronal and sagittal MPR images reviewed. All images st ored on PACS. All CT scanners at this facility use dose modulation, iterative reconstruction, and/or weight based d osing when appropriate to reduce radiation dose to as low as reasonably achievable (ALARA). [facility]: Dose Right [facility]: CareDose [facility]: Dose Right [facility]: Teradose 4D [facility]: Smart [employer] RADIATION DOSE: CT Rad equipment meets quality standard of care and radiation dose reduction techniq ues were employed. CTDIvol: 6.3 mGy. DLP: 253 mGy-cm. mGy. LIMITATIONS: No technical limitations. FINDINGS: LUNGS AND PLEURA: There appears to be increased in the emphysematous changes in the apices . Decrease in the nodularity at the bases. No effusions. No masses. HILAR AND MEDIASTINAL STRUCTURES: Stable mild hilar and mediastinal adenopathy. No progression. HEART AND VASCULAR STRUCTURES: No aneurysm. No pericardial effusion. UPPER ABDOMEN: No significant findings. Limited exam. THYROID AND OTHER SOFT TISSUES: No masses. No adenopathy. BONES: No significant finding. HARDWARE: None in the chest. OTHER: No other significant findings. IMPRESSION: Increase in emphysematous changes with decrease in the nodularity. Stable mild hilar mediastinal adenopathy. Consistent with diagnosis of sarcoidosis. TECHNICAL DOCUMENTATION: JOB ID: [id number] Quality ID # [id number]: Final reports with documentation of one or more dose reduction techniques (e.g., Au tomated exposure control, adjustment of the mA and/or kV according to patient size, use of iterative reconstruction technique) 2010 [employer]- All Rights Reserved Reading location - IP/workstation name: [email or web address]
[2019-09-05 03:36] LABS: CREATININE URINE 99.8 mg/dL (Not Estab.)
== END ==
LOC: RAD 09:44
PROVIDERS: ATTEND Registered Nurse
DX: D86.0 Sarcoidosis of lung (principal)
CPT/HCPCS: 36415; 71250; 82164; 82310; 82340; 82570; 85652

== ENCOUNTER → 2020-09-08 | Outpatient (CLI) | payer OTHER, MEDICAID ==
--- NOTE | 2020-09-08 17:03 | RADIOLOGY REPORT (SQ) ---
EXAM DESCRIPTION: CT CHEST WITHOUT IMAGES COMPLETED DATE/TIME: 09/08/2020 6:56 am REASON FOR STUDY: SARCOIDOSIS OF LUNG D86.0 SARCOIDOSIS OF LUNG. COMPARISON: CT chest 09/03/2019. CT chest 12/28/2017. CT chest 03/10/2016. TECHNIQUE: CT scan performed of the chest without intravenous contrast. Images reviewed with lung, soft tissue and bone windows. Reconstructed coronal and sagittal MPR images reviewed. All images st ored on PACS. All CT scanners at this facility use dose modulation, iterative reconstruction, and/or weight based d osing when appropriate to reduce radiation dose to as low as reasonably achievable (ALARA). [facility]: Dose Right [facility]: CareDose [facility]: Dose Right [facility]: Teradose 4D [facility]: [employer] RADIATION DOSE: CT Rad equipment meets quality standard of care and radiation dose reduction techniq ues were employed. CTDIvol: 7.0 mGy. DLP: 272 mGy-cm. mGy. LIMITATIONS: No technical limitations. FINDINGS: LUNGS AND PLEURA: Trachea has normal caliber and appearance. No bronchial wall thickening or bronchiectasis. Background moderate pulmonary emphysema is stable. Scattered diffuse solid nodu les with a predominantly lower lobe and middle lobe distribution, stable over multiple previous exami nations. There is subpleural nodularity in the left lung apex and along the left fissure. No focal confluent consolidation. Minimal linear atelectasis at the lingula. No pleural effusion or pneumoth orax. HILAR AND MEDIASTINAL STRUCTURES: Prominent bilateral hilar and mediastinal lymph nodes are stable. No angelica adenopathy. No mediastinal mass. Esophagus is unremarkable. HEART AND VASCULAR STRUCTURES: No aneurysm. No pericardial effusion. UPPER ABDOMEN: No significant findings. Limited exam. THYROID AND OTHER SOFT TISSUES: No masses. No adenopathy. BONES: No significant finding. HARDWARE: None in the chest. OTHER: No other significant findings. IMPRESSION: Overall stable diffuse pulmonary nodules. Background moderate pulmonary emphysema. No significant interval change. TECHNICAL DOCUMENTATION: JOB ID: [id number] Quality ID # [id number]: Final reports with documentation of one or more dose reduction techniques (e.g., Au tomated exposure control, adjustment of the mA and/or kV according to patient size, use of iterative reconstruction technique) 2010 [employer]- All Rights Reserved Reading location - IP/workstation name: [email or web address]
== END ==
LOC: RAD 07:35
PROVIDERS: ATTEND Internal Medicine Pulmonary Disease
DX: D86.0 Sarcoidosis of lung (principal)
CPT/HCPCS: 71250